=== PATIENT | male | born 1965 | race Two or more races ===

== ENCOUNTER 2017-11-08 19:16 | Emergency (ER) | payer SELFPAY ==
--- NOTE | 2017-11-08 21:35 | ED Physician Chart ---
ED Chief Complaint/HPI - Patient Information Date Seen:: 11/08/17 Time Seen:: 21:34 Chief Complaint:: Low back pain History of Present Illness:: 52 yo male was brought by ambulance to ER for evaluation of low back pain for 3 weeks. The patient denied any recent trauma to the back. He was seen at [facility] 3 days ago and morphine injection was given. Allergies:: Allergies Allergy/AdvReac Type Severity Reaction Status Date / Time No Known Allergies Allergy Verified 11/08/17 21:16 Vitals:: Vital Signs - 8 hr 11/08/17 21:00 Temp 102.1 F HR 112 RR 19 BP 155/99 O2 Sat % 97 ED Review of Systems - Review of Systems General/Constitutional: No fever Skin: No skin lesions Head: No headache Eyes: No pain ENT: No nasal drainage Neck: No neck pain Cardio Vascular: No chest pain Pulmonary: No SOB GI: No nausea, No vomiting Musculoskeletal: Back pain ED Past Medical History - Past Medical History Past Medical History: Other (Chronic back pain, HIV) Social History: Non Smoker, No Alcohol, No Drug Use Surgical History: None Family Medical History - Family Member Mother History Unknown: Yes ED Physical Exam - Physical Examination General/Constitutional: Awake Head: Atraumatic Eyes: PERRL Skin: No skin lesions ENMT: Nasal exam nl Neck: No nuchal rigidity Respiratory: Clear to Auscultation Cardio Vascular: RRR, No murmur, gallop, rubs, NL S1 S2 GI: No tenderness/rebounding/guarding Other Extremities comments:: lumbar tenderness with limited and painful ROM Neuro/Psych: No focal deficits ED Assessment - Assessment General Assessment: Lumbago Assessment/Comments:: Toradol 60mg IM D/C home and follow up PCP ED Septic Shock - . Is Septic Shock (SBP<90, OR Lactate>4 mmol\L) present?: No - <6hrs of presentation: Vital Signs: Vital Signs - 8 hr 11/08/17 21:00 Temp 102.1 F HR 112 RR 19 BP 155/99 O2 Sat % 97 ED Reassessment (Disposition) - Reassessment Reassessment Condition:: Improved - Patient Disposition Discharge/Transfer:: Home ED Discharge Plan - Patient Disposition Admit/Discharge/Transfer: PT DISCHARGED HOME Instructions: Chronic Pain Additional Instructions: follow up with your primary medical doctor [email or web address]
== END 2017-11-08 22:15 | disposition home or self-care (01) ==
LOC: ER 19:16
DX: M54.5 Low back pain (principal)
CPT/HCPCS: 99283; 96372; J1885; Z7502